=== PATIENT | male | born 1995 | race Caucasian/White ===

== ENCOUNTER 2019-12-20 18:43 | Emergency (ER) | payer SELFPAY ==
[2019-12-20 18:44] VITALS: BP 125/69; PULSE 78; RESP 18; TEMP 36.4; O2SAT 99; BMI 20.7
--- NOTE | 2019-12-20 18:46 | W.ED.UPPEXIN ---
HPI - Extremity Injury (Upper) General: Chief Complaint: Wound/Laceration Stated Complaint: finger laceration Time Seen by Provider: 12/20/19 18:46 Source: patient Mode of arrival: ambulatory Limitations: no limitations History of Present Illness: HPI narrative: Patient was using a skill saw at home, and injured his left middle finger. Patient appears well. Patient appears in moderate pain. Patient denies any chronic medical problems. Patient does have allergies to penicillins. Review of Systems General: Reports: 10 or more systems reviewed and unremarkable except in HPI and below Skin/Breast: Reports: other (Laceration distal digit on the middle finger left hand.) PFS ED PFSH: Social History Smoking and tobacco status: current every day smoker Physical Exam Const: COMMON NORMALS: no apparent distress and oriented x3 GENERAL APPEARANCE: cooperative HENMT: COMMON NORMALS: normocephalic, external ears normal, EAC's normal, TM's normal bilaterally and external nose normal HEAD & SCALP: normal to inspection and normocephalic FACE & SINUS: normal facial exam NOSE: external nose normal GENERAL EAR: hearing not grossly impaired EXTERNAL EAR: Yes external ears normal EXTERNAL AUDITORY CANAL: EAC's normal TYMPANIC MEMBRANE: TM's normal bilaterally MOUTH: oral and palatal mucosa normal THROAT: posterior oropharynx normal Eye: COMMON NORMALS: PERRL and EOMs intact bilaterally PUPIL: Yes PERRL Neck/C-Spine: COMMON NORMALS: full ROM and no lymphadenopathy Lymph: LYMPHATIC: no lymphedema noted Chest: COMMONS NORMALS: inspection of chest normal and palpation of chest normal Resp: COMMON NORMALS: normal respiratory effort and clear to auscultation bilaterally AUSCULTATION: clear to auscultation bilaterally Cardio: COMMON NORMALS: regular rate and regular rhythm RATE: regular rate RHYTHM: regular rhythm GI: COMMON NORMALS: normal to inspection, nondistended, normoactive bowel sounds and non-tender : COMMON NORMALS: Yes no CVA tenderness BLADDER/KIDNEY EXAM: Yes no CVA tenderness Back/Pelvis: COMMON NORMALS: no CVA tenderness and thoracic and lumbar spine normal to inspection Extremity: COMMON NORMALS: normal to inspection GENERAL: No edema Neuro: COMMON NORMALS: oriented x3, moves all extremities and no focal motor deficits Psych: COMMON NORMALS: mental status grossly normal and cooperative Skin: COMMON NORMALS: no rashes or lesions noted NARRATIVE SKIN EXAM: Patient has a distal laceration to the middle digit, left hand. Radial aspect of the distal finger is involved with some loss of nail but does not appear to be affecting the nailbed. Patient has normal tendon function. No obvious foreign bodies are noted. No visible bone is noted at this time. Bleeding is controlled. GENERAL SKIN EXAM: no rashes or lesions noted Procedures Laceration Laceration 1: Site: hand Side (If applicable): left Size (cm): 2.5 Description: irregular Local Anesthetic: lidocaine 1% Pre-repair: wound explored and irrigated extensively Skin layer closed with: nylon Size (cm): 4-0 Number of sutures: 7 Technique: simple, interrupted Nerve Block Nerve Block 1: Local Anesthetic: lidocaine 1% Side: left Nerve Blocks: digital (3rd digit left hand) Procedure Successful: Yes Patient Tolerated Procedure: well Complications: none Course Vital Signs: Vital signs: Vital Signs Temperature 97.6 F 12/20/19 18:44 Pulse Rate 78 12/20/19 18:44 Respiratory Rate 18 12/20/19 18:44 Blood Pressure 125/69 12/20/19 18:44 Pulse Oximetry 99 12/20/19 18:44 MDM - Extremity Injury (Upper) MDM Narrative: Medical decision making narrative: Patient comes in today for complaints of injury to the left middle finger. On exam we note a laceration to the distal part of the left finger involving the nail. Patient has normal range of motion of the finger. Distal cap refill is intact. Differential diagnosis includes fracture, laceration, foreign body, need for tetanus. X-ray noted some involvement of the bone at the tuft. Wound was repaired with 7 stitches. Patient tolerated well under a digital block. Wound was then dressed and splinted for protection. Recommended sutures out in 7 to 10 days. Patient was updated on his tetanus and started on antibiotic and medication for pain. Patient reports understanding. Discharge Plan Discharge Patient Disposition: Home, Self-Care Clinical Impression: Laceration Condition: Stable Prescriptions: New hydrocodone-acetaminophen 5-325 mg tablet 1 tab PO Q6H PRN (Reason: pain (scale score 7-10)) Qty: 10 RF: 0 Bactrim DS 800-160 mg tablet 1 tab PO BID 10 Days Qty: 20 RF: 0 Discharge Orders: Discharge Order (Routine); Ordered 12/20/19 Ordered By: Saulo J Barahona Discharge Diet: Usual diet Discharge Activity: Increase activity as tolerated Patient Instructions: Finger Laceration (ED) Activity Restrictions/Additional Instructions: Keep wound clean and dry Activity as tolerated Wear splint for the next week to protect wound Antibiotics as directed Drink plenty of water with medications Follow-up with primary care in one week Sutures out in 7-10 days Return to ER for high fever, worsening symptoms, or new concerns Coding Level of Care Code ED Vending Technician for Stacy Fwrufus Exam Comprehensive
--- NOTE | 2019-12-20 18:53 | XR_ITS ---
WS: [id number] LEFT HAND: 3 VIEW(S) TECHNIQUE: PA, oblique and lateral. HISTORY: laceration, injury COMPARISON: None available. Comminuted but nondisplaced fracture involving the terminal tuft of the third finger. There is adjace nt soft tissue edema and injury. No foreign body. No additional acute injuries. XR/XR hand LT min 3V* [id number] IMPRESSION: Minimally comminuted, nondisplaced fracture terminal tuft third finger with sof t tissue injury.
[2019-12-20] MEDS: sulfamethoxazole-trimeth DS 160-800 mg Tablet 1 TAB PO (19:45)
[2019-12-20] MEDS: HYDROcodone-acetaminophen 7.5-325 mg Tablet 1 TAB PO (19:45)
[2019-12-20] MEDS: tetanus-dipt-pertussis 0.5 mL SDV IM (19:50)
[2019-12-20 21:05] VITALS: BP 122/76; PULSE 60; RESP 14; O2SAT 97
== END 2019-12-20 21:06 | disposition home or self-care (01) ==
LOC: ER 20:31
PROVIDERS: Emergency Provider Nurse Practitioner Family
DX: S61.313A Laceration without foreign body of left middle finger with damage to nail, initial encounter (principal); Z88.0 Allergy status to penicillin; W31.2XXA Contact with powered woodworking and forming machines, initial encounter; Y92.009 Unspecified place in unspecified non-institutional (private) residence as the place of occurrence of the external cause
CPT/HCPCS: 12001; 73130; 90471; 90715; 99281; 99283

== ENCOUNTER 2020-07-18 18:22 | Emergency (ER) | payer SELFPAY ==
[2020-07-18 18:33] VITALS: BP 120/72; PULSE 83; RESP 14; TEMP 37.2; O2SAT 98; BMI 20.7
--- NOTE | 2020-07-18 18:39 | XR_ITS ---
WS: [id number] LEFT SHOULDER: 3 VIEW(S) TECHNIQUE: Internal and external rotation with Y view. HISTORY: injury COMPARISON: 07/04/2017 No fracture or dislocation or soft tissue abnormality. Glenohumeral and AC joints are unremarkable. XR/XR shoulder LT min 2V* [id number] IMPRESSION: Normal LEFT shoulder.
--- NOTE | 2020-07-18 18:47 | ED_ITS ---
HPI - Extremity Problem General: Chief complaint: Extremity Problem,Nontraumatic Stated complaint: left arm/shoulder injurry Time Seen by Provider: 07/18/20 18:39 History of Present Illness: HPI Narrative: Patient complains of left upper chest injury hurts taking a deep breath this was the last week and a half after doing some wrestling with a friend. Pain is continued able to move her arm but hurts in the left upper chest area Complaint: other (Left upper chest pain rib area) Onset (ago): day(s) Pain Consistency: constant Location: left Severity scale (1-10): 5 Quality: aching Radiation: none Relieving factors: immobilization Exacerbating factors: range of motion Associated symptoms: Reports no associated symptoms; Deny chest pain, fever(s) or rash Review of Systems Const: Denies: fever(s), chills or body aches Eyes: Denies: change in vision or blurry vision ENMT: Denies: throat pain or nasal congestion Card: Denies: chest pain or dyspnea on exertion Resp: Denies: dyspnea, productive cough or non-productive cough GI: Denies: abdominal pain, nausea or vomiting : Denies: difficulty urinating Musc: Reports: other (Pain left pec area down into the ribs); Denies: extremity pain Skin/Breast: Denies: rash Neuro: Denies: headache(s) Psych: Denies: anxiety or depression Rony/Lymph: Denies: easy bruising PFSH ED PFSH: Social History Smoking and tobacco status: current every day smoker Physical Exam Const: COMMON NORMALS: no acute distress, average body habitus and patient oriented x3 HENMT: COMMON NORMALS: normocephalic HEAD & SCALP: normal to inspection and normocephalic FACE & SINUS: normal facial exam Eye: COMMON NORMALS: conjunctivae normal GENERAL EYE: appearance normal, both eyes and all related structures CONJUNCTIVA: Yes conjunctivae normal Neck/C-Spine: COMMON NORMALS: no JVD Chest: CHEST: Yes localized rib tenderness with anteroposterior compression (Left upper chest area) Resp: COMMON NORMALS: normal respiratory effort and clear to auscultation bilaterally AUSCULTATION: clear to auscultation bilaterally Cardio: COMMON NORMALS: no JVD, regular rate and regular rhythm RATE: regular rate RHYTHM: regular rhythm GI: COMMON NORMALS: Normal to inspection, nondistended, normoactive bowel sounds present Extremity: COMMON NORMALS: normal to inspection and full ROM Neuro: COMMON NORMALS: patient oriented x3 Course Vital Signs: Vital signs: Vital Signs Temperature 98.9 F 07/18/20 18:33 Pulse Rate 83 07/18/20 18:33 Respiratory Rate 14 07/18/20 18:33 Blood Pressure 120/72 07/18/20 18:33 Pulse Oximetry 98 07/18/20 18:33 MDM - Extremity (Nontraumatic) Imaging Data^: Other Xray: My impression: Negative Discharge Plan Discharge Patient Disposition: Home Clinical Impression: Pectoralis muscle strain Qualifiers: Encounter type: initial encounter Qualified Code(s): S29.011A - Strain of muscle and tendon of front wall of thorax, initial encounter Condition: Stable Prescriptions: No Action hydrocodone-acetaminophen 5-325 mg tablet 1 tab PO Q6H PRN (Reason: pain (scale score 7-10)) Qty: 10 RF: 0 Discharge Orders: Discharge Order (Routine); Ordered 07/18/20 Ordered By: Gilberto Art Discharge Diet: Usual diet Discharge Activity: Increase activity as tolerated Patient Instructions: Muscle Strain (ED) Activity Restrictions/Additional Instructions: Apply ice and moist heat to area alternate. Can take ibuprofen for discomfort. Follow-up your family medical provider if no significant provement in 1 to 2 morales celis Discharge Date/Time: 07/18/20 19:45 Coding Level of Care Code ED Sink Cutter for Stacy Fwd Exam Comprehensive
--- NOTE | 2020-07-18 18:47 | XR_ITS ---
WS: [id number] LEFT RIBS, MULTIPLE VIEWS WITH PA CHEST HISTORY: left upper chest pain COMPARISON: None available. Lungs and mediastinum: Mildly hyperexpanded lungs. No pneumothorax or pulmonary contusion. There are a few scattered granulomata in the RIGHT lung. Ribs: No rib fractures or bone destruction identified. XR/XR ribs LT mn 3V w CXR1V [id number] IMPRESSION: No LEFT rib fractures identified.
== END 2020-07-18 19:45 | disposition home or self-care (01) ==
PROVIDERS: Emergency Provider Nurse Practitioner Family
DX: S29.011A Strain of muscle and tendon of front wall of thorax, initial encounter (principal); F17.210 Nicotine dependence, cigarettes, uncomplicated; X50.9XXA Other and unspecified overexertion or strenuous movements or postures, initial encounter; Y93.72 Activity, wrestling
CPT/HCPCS: 12345; 71101; 73030; 99281; 99283

== ENCOUNTER 2021-08-19 19:46 | Emergency (ER) | payer SELFPAY ==
[2021-08-19 19:52] VITALS: BP 119/74; PULSE 79; RESP 18; TEMP 37.1; O2SAT 99; BMI 20.7
--- NOTE | 2021-08-19 20:18 | W.ED.MALEGU ---
HPI - Male Genitourinary General: Chief complaint: Urogenital-Male Stated complaint: Blood in Urine\Testical Pain\ABD Pain Time Seen by Provider: 08/19/21 20:18 History of Present Illness: HPI Narrative: 26-year-old male patient comes in today with complaints of pain to the right testicle. Patient reports that last 3 days he has had increasing discomfort to the right testicle, it first started with drainage from the penile tip, and changes in urination with noticeable blood. Patient appears well. Patient appears in mild pain. Patient appears well. Patient appears no acute distress. Patient denies any routine medications or chronic medical problems. Patient does report chlamydia about 1 year ago. Review of Systems General: Reports: 10 or more systems reviewed and unremarkable except in HPI and below : Reports: penile discharge and testicular pain PFS ED PFSH: Social History Smoking and tobacco status: current every day smoker Physical Exam Const: COMMON NORMALS: no acute distress and patient oriented x3 GENERAL APPEARANCE: cooperative HENMT: COMMON NORMALS: normocephalic and Normal external nose present HEAD & SCALP: normal to inspection and normocephalic NOSE: Normal external nose present Eye: GENERAL EYE: appearance normal, both eyes and all related structures Neck/C-Spine: COMMON NORMALS: full ROM Chest: COMMONS NORMALS: normal inspection of the chest Resp: COMMON NORMALS: normal respiratory effort EFFORT & INSPECTION: Yes able to speak in complete sentences Cardio: COMMON NORMALS: regular rate and regular rhythm RATE: regular rate RHYTHM: regular rhythm GI: COMMON NORMALS: non-tender : BLADDER/KIDNEY EXAM: Yes CVA tenderness on the right PENIS: normal penis SCROTUM: Yes Cremasteric reflex present TESTES: No testicular swelling and Yes epididymal tenderness Back/Pelvis: COMMON NORMALS: thoracic and lumbar spine normal to inspection GENERAL BACK: Yes CVA tenderness Extremity: COMMON NORMALS: normal to inspection Neuro: COMMON NORMALS: patient oriented x3 and moves all extremities Psych: COMMON NORMALS: mental status grossly normal and cooperative Skin: COMMON NORMALS: no rashes or lesions noted GENERAL SKIN EXAM: no rashes or lesions noted Course Vital Signs: Vital signs: Vital Signs Temperature 98.7 F 08/19/21 21:35 Pulse Rate 77 08/19/21 21:35 Respiratory Rate 18 08/19/21 21:35 Blood Pressure 121/72 08/19/21 21:35 Pulse Oximetry 100 08/19/21 21:35 MDM - Male MDM Narrative: Medical decision making narrative: Patient came in today for complaints of burning with urination, penile discharge, and right testicular pain. On exam patient has normal testicles with tenderness of a varicocele or epididymis. Normal cremasteric reflex. Differential diagnosis includes but not limited to epididymitis, urinary tract infection, kidney stone. Urine had a large amount of red blood cells and white blood cells. Laboratory values noted a 14.5 white count. CMP was unremarkable. Ultrasound of the scrotum noted a varicocele but was otherwise normal. CT of the abdomen and bladder noted no obstructing renal calculi. Reviewed exam with patient recommended treatment for a urinary tract infection. Recommended follow-up with urologist due to the cystitis and the varicocele. Case management was consulted for referral. Patient reported understanding and agreed to plan. Patient was written a prescription for some hydrocodone 5/325 to use as needed for breakthrough pain. Review of the record indicated no recent narcotic prescriptions. Patient reported that he would use it sparingly and understood the risks involved of you taking the medication but states that he often will not take medications like that and will otherwise use his medical marijuana. Lab Data: Labs: Lab Results 08/19/21 08/19/21 08/19/21 19:59 20:42 20:42 WBC 14.5 10^3/uL H 10 ^3/uL (4.0-10.0) RBC 4.87 10^6/uL 10^6 /uL (4.1-5.3) Hgb 14.5 g/dL g/dL (11.7-16.6) Hct 45.0 % % (42.0-52.0) MCV 92.4 fl fl (80-94) MCH 29.8 pg pg (28.0-34.0) MCHC 32.2 g/dL g/dL (30.0-36.0) RDW 12.8 % % (12.1-15.1) Plt Count 235 10^3/cmm 10^3 /cmm (130-400) MPV 10.4 fL fL (7.4-10.4) Neut % (Auto) 79.6 % % Lymph % (Auto) 12.4 % % [place] % (Auto) 6.3 % % Eos % (Auto) 1.1 % % Baso % (Auto) 0.3 % % Neut # (Auto) 11.51 10^3/uL H 1 0^3/uL (1.8-7.7) Lymph # (Auto) 1.8 10^3/uL 10^3/ uL (0.8-4.8) [place] # (Auto) 0.9 10^3/uL 10^3/ uL (0.2-0.9) Eos # (Auto) 0.2 10^3/uL 10^3/ uL (0.0-0.8) Baso # (Auto) 0.0 10^3/uL 10^3/ uL (0.0-0.1) Nucleated RBC % (a uto) 0 % % Nucleated RBCs # 0.0 /100WBC /100W BC Sodium 136 mmol/L mmol/L (136-145) Potassium 3.7 mmol/L mmol/L (3.5-5.1) Chloride 99 mmol/L mmol/L (98-107) Carbon Dioxide 24 mmol/L mmol/L (22-29) Anion Gap 16.7 (5-19) BUN 15 mg/dL mg/dL (6-20) Creatinine 0.8 mg/dL mg/dL (0.7-1.2) GFR Calculation 116.0 mL/min mL/m in (90-130) Glucose 122 mg/dL H mg/dL (65-115) Calculated Osmolal ity 284 mOsm/kg L mOs m/kg (285-295) Calcium 8.5 mg/dL mg/dL (8.5-10.5) Total Bilirubin 0.3 mg/dL mg/dL (0.15-1.2) AST 14 U/L U/L (0-40) ALT 11 U/L U/L (0-41) Alkaline Phosphata se 101 IU/L IU/L (40-130) Total Protein 6.4 g/dL L g/dL (6.6-8.7) Albumin 4.1 g/dL g/dL (3.5-5.2) Globulin 2.3 g/dL g/dL (1.3-4.6) Urine Color Yellow (Yellow) Urine Appearance Sl hazy (CLEAR) Urine pH 8 H (5-7) Ur Specific Gravit y 1.010 (1.005-1.030) Urine Protein Trace (Negative) Urine Glucose (UA) Norm (Normal) Urine Ketones Negative (Negative) Urine Blood 3+ H (Negative) Urine Nitrate Negative (Negative) Urine Bilirubin Neg (Negative) Prot Sulfosalicyli c Acd Positive (Negative) Urine Urobilinogen Norm mg/dL mg/dL (Negative) Ur Leukocyte Kimberly ase 2+ H (Negative) Urine RBC >100 /hpf H /hpf (0-2) Urine WBC Too numerous to c nt /hpf H /hpf (0-5) Ur Squamous Epith Cells 0-4 /hpf H /hpf (0-5) Amorphous Sediment Not Reportable Urine Bacteria 2+ /hpf H /hpf (NONE) Discharge Plan Discharge Patient Disposition: Home Clinical Impression: Cystitis, Right varicocele Condition: Stable Prescriptions: New Cipro 500 mg tablet 500 mg PO BID Qty: 20 RF: 0 hydrocodone-acetaminophen 5-325 mg tablet 1 tab PO TID PRN (Reason: pain (scale score 7-10)) Qty: 7 RF: 0 No Action hydrocodone-acetaminophen 5-325 mg tablet 1 tab PO Q6H PRN (Reason: pain (scale score 7-10)) Qty: 10 RF: 0 Discharge Orders: Discharge ED (Routine); Ordered 08/19/21 Ordered By: Saulo Barahona Discharge Diet: Usual diet Discharge Activity: Increase activity as tolerated Patient Instructions: Varicocele (ED), Opioid Safety Activity Restrictions/Additional Instructions: Home and rest. Drink plenty of water. Take antibiotic as directed for the full 10 days. Use medication Tylenol and ibuprofen as needed for mild to moderate pain. Use hydrocodone for severe pain. Activity as tolerated. Use good supportive undergarments for the groin. Follow-up with urologist for further evaluation and treatment of varicocele. Coding Level of Care Code ED Electronics Lead for Chg Fwd Exam Comprehensive
[2021-08-19 20:25] LABS: Blood Urine 3+ (Negative); Glucose Urine UA Norm (Normal); Ketones Urine Negative (Negative); Nitrate Urine Negative (Negative); Protein Urine Trace (Negative); Urine Appearance SL Hazy (CLEAR); Urine Color Yellow (Yellow); pH Urine 8 (5-7)
--- NOTE | 2021-08-19 20:25 | USR_ITS ---
PROCEDURE INFORMATION: Exam: US Scrotum Exam date and time: 08/19/2021 8:25 PM Age: 26 years old Clinical indication: Scrotum pain; Additional info: Right test pain, R/O torsion TECHNIQUE: Imaging protocol: Real-time ultrasound of the scrotum and contents with color Doppler and image documentation. Total images: 55 COMPARISON: CT kidney stone [id number] 08/19/2021 8:42 PM FINDINGS: Right testicle: Normal. No mass. No torsion. Normal vascular flow. Dimensions of the right testicle 4.8 cm x 2.3 cm x 2.5 cm. Left testicle: Normal. No mass. No torsion. Normal vascular flow. Dimensions of the left testicle 4.2 cm x 2.6 cm x 3.1 cm. Epididymides: Normal. Scrotum: Bilateral small varicoceles, right larger than left. No visible hydrocele. US/US scrotum [id number] IMPRESSION: Bilateral small varicoceles. Radiation Dose CTDIVOL = (mGy): DLP = (mGy-cm)
--- NOTE | 2021-08-19 20:25 | CTR_ITS ---
PROCEDURE INFORMATION: Exam: CT Abdomen And Pelvis Without Contrast Exam date and time: 08/19/2021 8:25 PM Age: 26 years old Clinical indication: Abdominal pain; Localized; Right lower quadrant (rlq); Patient HX: Rlq/groin pain; Additional info: Right CVA tenderness, right testicular pain TECHNIQUE: Imaging protocol: Computed tomography of the abdomen and pelvis without contrast. Total images: 327 Radiation optimization: All CT scans at this facility use at least one of these dose optimization techniques: automated exposure control; mA and/or kV adjustment per patient size (includes targeted exams where dose is matched to clinical indication); or iterative reconstruction. COMPARISON: CR XR ribs LT mn 3V w CXR1V [id number] 07/18/2020 7:01 PM RADIATION DOSE METRICS: Total DLP (mGy-cm): 902.62 FINDINGS: Lungs: Limited assessment of the lung bases fails to reveal evidence for active cardiopulmonary process. Liver: No visible hepatic mass or cystic structure. Gallbladder and bile ducts: Gallbladder is contracted. No visible cholelithiasis. No visible intra or extrahepatic biliary ectasia. Pancreas: Pancreas is unremarkable. No visible pancreatic ductal ectasia. Spleen: Spleen is unremarkable. Adrenal glands: Adrenal glands unremarkable. Kidneys and ureters: No visible hydronephrosis, hydroureter, ureterolithiasis, nephrolithiasis, or nephrocalcinosis. No visible perinephric fluid. Stomach and bowel: Assessment of the hollow viscus fails to reveal evidence of active or acute pathology. Nonobstructed bowel pattern. No visible acute diverticulitis. No visible adynamic or reactive ileus. Appendix: The appendix is visualized and appears noninflamed. Intraperitoneal space: No visible pneumoperitoneum or intraperitoneal ascites. Vasculature: The abdominal aorta is nonaneurysmal. Phleboliths in the true pelvis. Lymph nodes: No current visible evidence of active mesenteric or retroperitoneal lymphadenopathy. No visible evidence of mesenteric lymphadenitis or active mesenteritis/panniculitis. Urinary bladder: Urinary bladder unremarkable. No visible bladder stone. Reproductive: Unremarkable as visualized for age. Bones/joints: No visible active or acute osseous pathology. Mild scoliotic curvature of the spine. Soft tissues: Unremarkable. CT/CT kidney stone [id number] IMPRESSION: 1. Currently no visible evidence for acute abdominal or pelvic pathologic process. 2. No visible hydronephrosis, hydroureter, ureterolithiasis, nephrolithiasis, or nephrocalcinosis. Radiation Dose CTDIVOL = (mGy): DLP = 902.62 (mGy-cm)
[2021-08-19 20:26] LABS: Add Urine Microscopic? YES; Bilirubin Urine Neg (Negative); Leukocyte Esterase Urine 2+ (Negative); Sulfosalicylic Acid Urine Positive (Negative); Urobilinogen Urine Norm (Negative)
[2021-08-19 20:28] LABS: Add Urine Culture? Yes; Bacteria Urine 2+ /hpf; RBC Urine >100 /hpf (0-2); Squamous Epithelial Cell Urine 0-4 /hpf (0-5); WBC Urine TOO NUMEROUS TO CNT /hpf (0-5)
[2021-08-19] MEDS: HYDROcodone-acetaminophen 7.5-325 mg Tablet 1 TAB PO (20:35)
[2021-08-19 20:46] LABS: Basophils % 0.3 %; Eosinophils # 0.2 10^3/uL (0.0-0.8); Eosinophils % 1.1 %; Hemoglobin 14.5 g/dL (11.7-16.6); Lymphocytes # 1.8 10^3/uL (0.8-4.8); Lymphocytes % 12.4 %; Mean Corpuscular HGB Conc 32.2 g/dL (30.0-36.0); Mean Corpuscular Hemoglobin 29.8 pg (28.0-34.0); Mean Corpuscular Volume 92.4 fl (80-94); Mean Platelet Volume 10.4 fL (7.4-10.4); Monocytes # 0.9 10^3/uL (0.2-0.9); Monocytes % 6.3 %; Neutrophils # 11.51 10^3/uL (1.8-7.7); Neutrophils % 79.6 %; Nucleated Red Blood Cells % 0 %; Platelet Count 235 10^3/cmm (130-400); Red Blood Count 4.87 10^6/uL (4.1-5.3); Red Cell Distribution Width 12.8 % (12.1-15.1); White Blood Count 14.5 10^3/uL (4.0-10.0)
[2021-08-19 21:01] LABS: Blood Urea Nitrogen 15 mg/dL (6-20); Calcium 8.5 mg/dL (8.5-10.5); Chloride 99 mmol/L (98-107); Potassium 3.7 mmol/L (3.5-5.1); Sodium 136 mmol/L (136-145); Total Bilirubin 0.3 mg/dL (0.15-1.2)
[2021-08-19 21:17] LABS: Alanine Aminotransferase 11 U/L (0-41); Albumin Level 4.1 g/dL (3.5-5.2); Alkaline Phosphatase 101 IU/L (40-130); Anion Gap 16.7 (5-19); Aspartate Amino Transferase 14 U/L (0-40); Carbon Dioxide 24 mmol/L (22-29); Globulin 2.3 g/dL (1.3-4.6); Glucose 122 mg/dL (65-115); Osmolality Calculated 284 mOsm/kg (285-295); Total Protein 6.4 g/dL (6.6-8.7)
[2021-08-19 21:35] VITALS: BP 121/72; PULSE 77; RESP 18; TEMP 37.1; O2SAT 100
[2021-08-19] MEDS: ciprofloxacin 500 mg Tablet PO (21:38)
--- NOTE | 2021-08-21 05:37 | DCPLANNER ---
manager regional had message to schedule a follow up appointment for patient with Dr. Zamudio. manager regional emailed patients information to Selvin Ren[place] and Julie in Dr. Starkey office. Patients information will be printed and reviewed. Clinic will call patient with appointment information.
--- NOTE | 2021-08-22 08:18 | DCPLANNER ---
Patient has a follow up appointment scheduled for Sunday, September 19, [address] at 9:[address] Zamudio. Clinic will call patient with appointment information.
== END 2021-08-19 21:42 | disposition home or self-care (01) ==
PROVIDERS: Emergency Provider Nurse Practitioner Family
DX: I86.1 Scrotal varices (principal); N30.90 Cystitis, unspecified without hematuria; F17.210 Nicotine dependence, cigarettes, uncomplicated
CPT/HCPCS: 74176; 76870; 80053; 81001; 85025; 87077; 87086; 87186; 87491; 87591; 93976; 99283

== ENCOUNTER 2023-05-27 06:37 | Emergency (ER) | payer SELFPAY ==
[2023-05-27 06:44] VITALS: BP 149/87; PULSE 71; RESP 16; TEMP 36.7; O2SAT 98; BMI 21.2
[2023-05-27 06:47] VITALS: PULSE 64; O2SAT 97
[2023-05-27] MEDS: ketorolac 30 mg/mL INJ IVP (07:23)
[2023-05-27] MEDS: orphenadrine 30 mg/mL Inj 2 mL 60 MG IVP (07:24)
[2023-05-27] MEDS: dexamethasone 10 mg/mL INJ IVP (07:24)
--- NOTE | 2023-05-27 07:26 | ED_ITS ---
HPI - Back Pain/Injury General: Chief Complaint: Back Pain/Injury Stated Complaint: back pain Time Seen by Provider: 05/27/23 06:42 Source: patient Mode of arrival: ambulatory History of Present Illness: 28-year-old male presents emergency room with complaints of back pain. He has had back pain intermittently in the past he is few weeks ago he was on steroids and muscle relaxers which did seem to improve. However this recurred again he cannot recall a precipitating event. No recent trauma twisting or injury. No difficulty with urinary retention or fecal incontinence no saddle paresthesias. MD elicited complaint: back pain Pertinent past history: prior back pain Onset (ago): day(s) Timing: constant Severity: moderate Similar Symptoms Previously: Yes Location: lumbar spine Radiation: none Exacerbating factors: movement, sitting upright and walking Relieving factors: supine Associated symptoms: Reports difficulty walking and fatigue; Deny abdominal pain, arthralgias, chills, dysuria, fever(s), hematuria, myalgias, nausea, numbness, syncope, tingling/numbness/burning, urinary frequency, urinary urgency, vomiting or weakness Review of Systems Const: Reports: fatigue; Denies: fever(s) or chills Card: Denies: chest pain or syncope Resp: Denies: dyspnea, productive cough or non-productive cough GI: Denies: abdominal pain, nausea or vomiting : Denies: dysuria, urinary frequency, urinary urgency or hematuria Musc: Reports: back pain Skin/Breast: Denies: rash or pruritus Neuro: Reports: difficulty walking [facility] ED PFSH: Social History Smoking and tobacco status: current every day smoker Physical Exam Const: GENERAL APPEARANCE: cooperative and comfortable ORIENTATION/CONSCIOUSNESS: Yes awake, Yes oriented to person, Yes oriented to place and Yes oriented to time HENMT: COMMON NORMALS: normocephalic, atraumatic and hearing grossly normal bilaterally HEAD & SCALP: normocephalic and atraumatic Resp: COMMON NORMALS: normal respiratory effort, No retractions, No use of accessory muscles and clear to auscultation bilaterally AUSCULTATION: clear to auscultation bilaterally Cardio: COMMON NORMALS: regular rate, regular rhythm and No murmurs present (Cardio) RATE: regular rate RHYTHM: regular rhythm GI: COMMON NORMALS: Soft to palpation and No hepatosplenomegaly present AUSCULTATION: Yes normoactive bowel sounds PALPATION: Yes Soft to palpation, No Tenderness to palpation present (GI), No Guarding due to palpation present (GI) and Yes No hepatosplenomegaly present Extremity: COMMON NORMALS: normal to inspection, capillary refill normal, no clubbing, cyanosis or edema, no calf tenderness and no pedal edema Neuro: SENSORIUM/ORIENTATION: Yes oriented to person, Yes oriented to place and Yes oriented to time Skin: COMMON NORMALS: no rashes or lesions noted GENERAL SKIN EXAM: no rashes or lesions noted Course Vital Signs: Vital signs: Vital Signs Temperature 98.0 F 05/27/23 06:44 Pulse Rate 64 05/27/23 06:47 Respiratory Rate 16 05/27/23 06:44 Blood Pressure 149/87 05/27/23 06:44 Pulse Oximetry 97 05/27/23 06:47 Oxygen Delivery Me thod Room Air 05/27/23 06:44 MDM - Back Pain/Injury Medical Decision Making Improvement in medications given. No red flag symptoms at this time. This been a recurring issue for him in the past. Discharged home on steroid taper diclofenac and tizanidine. We will have case management help him make arrangements for follow-up with PCP. Discharge Plan Discharge Patient Disposition: Home Clinical Impression: Strain of lumbar region Condition: Stable Prescriptions: New tizanidine 4 mg tablet 4 mg PO Q6H PRN (Reason: muscle spasticity) Qty: 20 0RF Rx Instructions: do not exceed 3 doses per 24 hrs prednisone 20 mg tablet 20 mg PO TID Qty: 15 0RF Rx Instructions: 1 p.o. 3 times daily x3 days, 1 p.o. twice daily x2 days, 1 p.o. daily x2 days diclofenac sodium 75 mg tablet,delayed release (DR/EC) 75 mg PO Q12H PRN (Reason: pain) Qty: 20 0RF Discontinued ibuprofen 800 mg tablet 800 mg PO Q8H PRN (Reason: pain) Qty: 60 0RF Discharge Orders: Discharge ED (Routine); Ordered 05/27/23 Ordered By: Axel Billings Discharge Diet: Usual diet Discharge Activity: Increase activity as tolerated Patient Instructions: Opioid Safety, Pain Management Activity Restrictions/Additional Instructions: You were seen today for recurrent low back pain. Recommend that you establish with a primary care provider for long-term management and further evaluation if indicated. Case management will help make arrangements for establish with a primary care physician. Coding Level of Care Code ED Computer Forensic Specialist for Stacy Kern
--- NOTE | 2023-05-27 07:27 | PC.PHAR ---
pt states only takes ibuprofen prn-pt states he finished his methocarbamol 750mg tid prn and prednisone 60mg daily written on 04/16/23
--- NOTE | 2023-05-27 10:35 | DCPLANNER ---
program development manager had message to speak with patient about getting established with a primary care physician. Patient stated that he wanted to speak with his , before getting a physician.
== END 2023-05-27 08:24 | disposition home or self-care (01) ==
PROVIDERS: Emergency Provider Family Medicine
DX: S39.012A Strain of muscle, fascia and tendon of lower back, initial encounter (principal); F17.210 Nicotine dependence, cigarettes, uncomplicated; X58.XXXA Exposure to other specified factors, initial encounter
CPT/HCPCS: 96374; 96375; 99284; J1100; J1885; J2360

== ENCOUNTER 2023-09-10 16:16 | Inpatient (IN) | payer MEDICAID, SELFPAY ==
[2023-09-10 16:22] VITALS: BMI 20.7
[2023-09-10 16:26] VITALS: BP 128/80; PULSE 97; RESP 16; TEMP 36.8; O2SAT 98
--- NOTE | 2023-09-10 16:27 | W.ED.PSYCHS ---
HPI - Psych General: Chief Complaint: Psychiatric Symptoms Stated Complaint: SI/ Depression Time Seen by Provider: 09/10/23 16:17 Source: patient, EMS and police Limitations: no limitations History of Present Illness: 28-year-old male states that his inserted her divorce papers he had sent her text and easy to kill himself she had called the police please pull them over he states that he no longer wants to live anymore to them and they brought him up here feeling out affidavits. When I evaluate patient he is very quiet seems depressed he is not answering my questions and is very avoidant at this time. Associated symptoms: Reports depression and suicidal ideation Review of Systems Const: Denies: fever(s), chills, body aches or change in appetite ENMT: Denies: throat pain or dental pain Card: Denies: chest pain Resp: Denies: dyspnea GI: Denies: abdominal pain, nausea, vomiting or diarrhea Musc: Denies: neck pain or back pain Skin/Breast: Denies: rash Neuro: Denies: headache(s) Psych: Reports: depression and suicidal ideation [facility] ED PFSH: Social History Smoking and tobacco/nicotine status: current every day tobacco/nicotine user Physical Exam Const: COMMON NORMALS: no acute distress, patient oriented x3 and healthy appearing HENMT: COMMON NORMALS: normocephalic and atraumatic HEAD & SCALP: normocephalic and atraumatic Eye: COMMON NORMALS: conjunctivae normal CONJUNCTIVA: Yes conjunctivae normal Neck/C-Spine: COMMON NORMALS: full ROM and supple Chest: COMMONS NORMALS: normal inspection of the chest Resp: COMMON NORMALS: normal respiratory effort Cardio: COMMON NORMALS: regular rate, regular rhythm and No murmurs present (Cardio) RATE: regular rate RHYTHM: regular rhythm Extremity: COMMON NORMALS: normal to inspection Neuro: COMMON NORMALS: patient oriented x3, moves all extremities and no focal motor deficits Psych: COMMON NORMALS: mental status grossly normal, Normal thought process present and cooperative MOOD & AFFECT: Yes depressed mood THOUGHT PROCESS: Normal thought process present THOUGHT CONTENT: Yes Suicidality present Skin: COMMON NORMALS: no rashes or lesions noted and no wounds GENERAL SKIN EXAM: no rashes or lesions noted Course Vital Signs: Vital signs: Vital Signs Temperature 98.2 F 09/10/23 16:26 Pulse Rate 97 09/10/23 16:26 Respiratory Rate 15 09/10/23 18:00 Blood Pressure 128/80 09/10/23 16:26 Pulse Oximetry 98 09/10/23 16:26 Oxygen Delivery Me thod Room Air 09/10/23 16:26 [facility] - Psych Medical Decision Making Patient presents here with suicidal ideation he is placed under 96-hour hold he is medically cleared will admit him to the psych [facility]. Medical Records I reviewed the patient's medical records. Lab Data I reviewed the patient's lab results. 09/10/23 16:43 09/10/23 16:43 Laboratory Results WBC 10.40 10^3/uL (3.29-11.43) 09/10/23 16:43 RBC 5.39 10^6/uL (3.85-5.65) 09/10/23 16:43 Hgb 16.00 g/dL (11.27-16.99) 09/10/23 16:43 Hct 49.9 % (37-53) 09/10/23 16:43 MCV 92.6 fl (82-101) 09/10/23 16:43 MCH 29.7 pg (27-33) 09/10/23 16:43 MCHC 32.1 g/dL (30-55) 09/10/23 16:43 RDW 12.9 % (12.1-15.1) 09/10/23 16:43 Plt Count 271 10^3/cmm (157-399) 09/10/23 16:43 MPV 9.9 fL (7.4-10.4) 09/10/23 16:43 Neut % (Auto) 80.3 % 09/10/23 16:43 Lymph % (Auto) 13.6 % 09/10/23 16:43 [place] % (Auto) 4.9 % 09/10/23 16:43 Eos % (Auto) 0.3 % 09/10/23 16:43 Baso % (Auto) 0.5 % 09/10/23 16:43 Neut # (Auto) 8.36 10^3/uL (1.8-7.7) H 09/10/23 16:43 Lymph # (Auto) 1.4 10^3/uL (0.8-4.8) 09/10/23 16:43 [place] # (Auto) 0.5 10^3/uL (0.2-0.9) 09/10/23 16:43 Eos # (Auto) 0.0 10^3/uL (0.0-0.8) 09/10/23 16:43 Baso # (Auto) 0.1 10^3/uL (0.0-0.1) 09/10/23 16:43 Nucleated RBC % (auto) 0 % 09/10/23 16:43 Nucleated RBCs # 0.0 /100WBC 09/10/23 16:43 Sodium 140 mmol/L (136-145) 09/10/23 16:43 Potassium 4.7 mmol/L (3.5-5.1) 09/10/23 16:43 Chloride 102 mmol/L (98-107) 09/10/23 16:43 Carbon Dioxide 27 mmol/L (22-29) 09/10/23 16:43 Anion Gap 15.7 (5-19) 09/10/23 16:43 BUN 15 mg/dL (6-20) 09/10/23 16:43 Creatinine 0.9 mg/dL (0.7-1.2) 09/10/23 16:43 GFR Calculation 99.8 mL/min (90-130) 09/10/23 16:43 Glucose 115 mg/dL (65-115) 09/10/23 16:43 Calculated Osmolality 292 mOsm/kg (285-295) 09/10/23 16:43 Calcium 9.7 mg/dL (8.5-10.5) 09/10/23 16:43 Total Bilirubin 0.4 mg/dL (0.15-1.2) 09/10/23 16:43 AST 20 U/L (0-40) 09/10/23 16:43 ALT 23 U/L (0-41) 09/10/23 16:43 Alkaline Phosphatase 95 U/L (40-130) 09/10/23 16:43 Total Protein 7.5 g/dL (6.6-8.7) 09/10/23 16:43 Albumin 4.8 g/dL (3.5-5.2) 09/10/23 16:43 Globulin 2.7 g/dL (1.3-4.6) 09/10/23 16:43 Salicylates < 0.3 mg/dL (3-10) L 09/10/23 16:43 Acetaminophen < 5.0 ug/mL (10-30) L 09/10/23 16:43 Ethyl Alcohol < 10 mg/dL (0-10) 09/10/23 16:43 No radiology studies performed this visit Discharge Plan Discharge Patient Disposition: Admitted As Inpatient Admit Provider: Dave Dobbins Clinical Impression: Suicidal ideation Condition: Stable Coding Level of Care Code ED Investment Underwriter for Stacy Kern
[2023-09-10 16:45] VITALS: RESP 15
[2023-09-10 17:01] LABS: Basophils # 0.1 10^3/uL (0.0-0.1); Basophils % 0.5 %; Eosinophils % 0.3 %; Hematocrit 49.9 % (37-53); Lymphocytes # 1.4 10^3/uL (0.8-4.8); Lymphocytes % 13.6 %; Mean Corpuscular HGB Conc 32.1 g/dL (30-55); Mean Corpuscular Hemoglobin 29.7 pg (27-33); Mean Corpuscular Volume 92.6 fl (82-101); Mean Platelet Volume 9.9 fL (7.4-10.4); Monocytes # 0.5 10^3/uL (0.2-0.9); Monocytes % 4.9 %; Neutrophils # 8.36 10^3/uL (1.8-7.7); Neutrophils % 80.3 %; Nucleated Red Blood Cells % 0 %; Platelet Count 271 10^3/cmm (157-399); Red Blood Count 5.39 10^6/uL (3.85-5.65); Red Cell Distribution Width 12.9 % (12.1-15.1)
--- NOTE | 2023-09-10 17:03 | PC.NURSE ---
this nurse informed pt on protocol of psychiatric hold. pt aware and verbalized understanding of process. pt calm and cooperative.
[2023-09-10 17:20] LABS: Acetaminophen < 5.0 ug/mL (10-30); Alanine Aminotransferase 23 U/L (0-41); Albumin Level 4.8 g/dL (3.5-5.2); Alcohol Level < 10 mg/dL (0-10); Alkaline Phosphatase 95 U/L (40-130); Anion Gap 15.7 (5-19); Aspartate Amino Transferase 20 U/L (0-40); Blood Urea Nitrogen 15 mg/dL (6-20); Calcium 9.7 mg/dL (8.5-10.5); Carbon Dioxide 27 mmol/L (22-29); Chloride 102 mmol/L (98-107); Globulin 2.7 g/dL (1.3-4.6); Glomerular Filtration Rate 99.8 mL/min (90-130); Glucose 115 mg/dL (65-115); Osmolality Calculated 292 mOsm/kg (285-295); Potassium 4.7 mmol/L (3.5-5.1); Salicylate < 0.3 mg/dL (3-10); Sodium 140 mmol/L (136-145); Total Bilirubin 0.4 mg/dL (0.15-1.2); Total Protein 7.5 g/dL (6.6-8.7)
[2023-09-10 18:00] VITALS: RESP 15
--- NOTE | 2023-09-10 18:03 | PC.NURSE ---
this nurse spoke with pt about giving and brother information regarding visit. pt said it was okay to give them information. this nurse updated and brother and informed them pt would be here for tonight, but unsure of length of stay at this time.
--- NOTE | 2023-09-10 18:29 | PC.NURSE ---
report called to Danny in [facility]. per Danny [facility] cannot accept pts until approx [phone].
--- NOTE | 2023-09-10 18:54 | PC.NURSE ---
Report taken from Marjorie Samayoa RN.
[2023-09-10 19:33] VITALS: BP 126/91; PULSE 74; RESP 18; TEMP 36.3; O2SAT 97
[2023-09-10 19:33] LABS: Amphetamines Screen Urine Negative (Negative); Barbiturates Screen Urine Negative (Negative); Benzodiazepines Screen Urine Negative (Negative); Cocaine Screen Urine Negative (Negative); Opiate Screen Urine Negative (Negative); PCP Screen Urine Negative (Negative); THC Screen Urine Positive (Negative)
--- NOTE | 2023-09-10 21:01 | PC.ADMIT ---
[address] [facility] Admission Note: The patient,Mark Quiñones,28 y/o, was given written information regarding hospital policies, unit procedures and contact persons. Patient's smoking status: current every day smoker.PACK A DAY AND VAPES. Vital Signs - 8 hr 09/10/23 16:26 09/10/23 16:45 09/10/23 18:00 Temperature 98.2 F Pulse Rate 97 Respiratory Rate 16 15 15 Blood Pressure 128/80 Pulse Oximetry 98 Oxygen Delivery Method Room Air 09/10/23 19:33 09/10/23 20:50 Temperature 97.4 F L Pulse Rate 74 Respiratory Rate 18 Blood Pressure 126/91 Pulse Oximetry 97 Oxygen Delivery Method Room Air Room Air ADMITTED FROM [facility] VIA WHEELCHAIR AND FREIGHT BROKER AGENT AT SIDE AT 1931. PT WAS PLACED ON A 96 HOUR HOLD THAT ENDS 09/16/23 AT 1648. PT IS EVASIVE, NO EYE CONTACT. PT IS OBSERVED TO HAVE A FLAT AFFECT AND GUARDED. PT STATES HE IS HERE DUE TO THE POLICE BRINGING ME HERE, RN ASKED IF HE MADE SUICIDAL STATEMENTS AND PT ROLLED EYES AND SAID YA PT CURRENTLY DENIES SI/HI AND AVH AT THIS TIME. DENIES PAIN. REPORTS LAST BM ON 09/09/23. REPORTS ALLERGIES OF PCN AND AUGMENTIN. STATES HE TAKES NO MEDICATIONS ON A ROUTINE BASIS. STATES HE HAS NOT BEEN TO A PSYCH FACILITY SINCE HE WAS A KID, WHEN HE STAYED AT [facility] FOR 15 MONTHS. PT REPORTS HE HAS NO SUPPORT SYSTEMS BUT HAS BEEN ON THE PHONE TWICE FOR EXTENDED LENGTH OF TIME. PT ORIENTATED TO UNIT. RATES ANXIETY AND DEPRESSION 0/10. ALL QUESTIONS ANSWERED AND SUPPORT VOICED.
[2023-09-11 06:00] VITALS: RESP 16
[2023-09-11 14:00] VITALS: BP 110/73; PULSE 78; RESP 13; TEMP 36.4; O2SAT 97
--- NOTE | 2023-09-11 14:59 | W.PM.NPUH&PS ---
Providers/Chief Complaint Admitting Physician: Dave Dobbins MD Chief Complaint: SI/ Depression HPI [facility] History of Present Illness Mark Quiñones is a 28 year old male with 1 previous history of inpatient psychiatric hospitalization who presented to the emergency department via police after the patient had allegedly made a statement that he no longer wished to be alive. The patient had reported that he had had an argument with his and she had brought up the idea of divorce and the patient had stated that he responded by stating that she would not need to worry about presenting papers to him as he would no longer be alive. Patient reports that he has battled depression for several years without a trigger. He reports multiple previous episodes of depression 2. He reports his current depression includes feelings of hopelessness, and he Michelle, depression more days than not, some loss of appetite with some worsening in mood later in the day and in the winter months. He endorsed that he has been battling depression for many years and states that he had frequently lashed out in anger but states that he often feels more sad and often reports struggles with concentration when depressed. He states having been treated previously for ADHD during his childhood and adolescent and reports that he has not been on medications for treating depression in more than 10 years. He endorses difficulties with staying on task. He reports difficulties with sustaining attention particularly in things that require sustained effort. He reports that he frequently starts projects and is unable to complete them. He reports that he frequently feels as if he is bored and struggles with sitting still. He reports having struggles with relaxing. He reports that he has also had periods of time where his mood is very different and during those times he has elevated energy decreased, decreased need for sleep, increased spending, and racing thoughts that last 2 to 3 days but are decidedly different than when he is depressed. He had reported having previously been treated with lithium for bipolar disorder during his childhood and adolescence as well. He denies any drug or alcohol use other than routine marijuana use recreationally for several years. He reports recent stressors have contributed to his cycling and mood including having young children and currently struggling with maintaining employment. He denies any history of psychosis. He reports a history of oppositional defiant behavior during childhood and adolescence. Inpatient psychiatric history:: He reports having been hospitalized 1 time at [facility] [place] at the age of 13 and states that he had been in the hospital for literally 13 months and had been diagnosed with bipolar disorder and placed on lithium. He reports no prior history of suicide attempts. Outpatient psychiatric history: none in several years but reports treatment for ADHD in childhood and adolescent with medication trials including lithium, concerta, Drug and alcohol history: He reports no alcohol use. He reports active use of marijuana since early adolescence. He reports no history of drug and alcohol treatment. Medical history: None; current medications: none Surgical history: None reported Allergies: Penicillin, amoxicillin Legal history: Reported some history of legal problems and 17 for breaking and entering along with trespassing. Family psychiatric history: Mother had been diagnosed with depression and schizophrenia Social History: Patient reported some learning problems having been diagnosed with ADHD as a child. He had reported that he had dropped out of high school in the 11th grade. Patient states that he was raised by his biological father as his mother had been diagnosed with paranoid schizophrenia and after his parents split up he and his 20 half siblings lived with the father. He had reported no previous history of sexual physical or emotional abuse. He had reported briefly for a period time in late adolescence that he went to go back to live with his biological mother to help her. 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 He reports that he has been for 6 years and has a 5-year-old and a 9-month-old who lives in the house with him and his . Meds NPU Home Medications Medication Instructions Recorded Confirmed Last Taken Type No Known Home Medications 09/10/23 09/10/23 Unknown History Allergies Allergy/AdvReac Type Severity Reaction Status Date / Time amoxicillin [From Augmentin] Allergy Unknown Verified 05/27/23 07:27 clavulanic acid Allergy Unknown Verified 05/27/23 07:27 [From Augmentin] Penicillins Allergy Unknown Verified 05/27/23 07:27 PFS NPU PFSH: Social History Smoking and tobacco/nicotine status: current every day tobacco/nicotine user Mental Status Exam MSE Comments: He is a pleasant casually dressed white male with fair hygiene and normal gait with no evidence of any abnormal involuntary motor movements tics or tremors appreciated. He was a good historian. There was evidence of moderate to severe psychomotor retardation. His thought process was linear logical goal-directed. His thought content showed no evidence of homicidal ideation. He endorsed vague suicidal ideation with no active plan at this time. His mood was described as depressed. His affect was restricted in range and mood congruent. His speech was normal in regards to rate rhythm and prosody. He did not appear to be responding to internal stimuli. There was no evidence of delusional thinking. His attention span appeared poor. His insight is poor. His judgment is poor. His impulse control appeared limited. His recent and remote memory appear grossly intact. Vitals/I&O/Wt Last Vital Signs Temp 97.4 F L 09/10/23 19:33 Pulse 74 09/10/23 19:33 Resp 16 09/11/23 06:00 BP 126/91 09/10/23 19:33 Pulse Ox 97 09/10/23 19:33 O2 Del Method Room Air 09/10/23 20:50 Weight last 48 hrs Weight 77.111 kg Data NPU 09/10/23 16:43 09/10/23 16:43 A&P Assessment and plan (1) Suicidal ideation: (2) Bipolar depression: (3) Bipolar II disorder: (4) ADHD, predominantly inattentive type: Plan 28-year-old white male with a history of bipolar 2 disorder with periods of hypomania currently endorsing depressed mood with suicidal ideation. He also appears to have symptoms supportive of a diagnosis of ADHD. 1. Encourage individual, group and milieu therapy. 2. Recommend sober living treatment at the highest level of care to which the patient is willing to commit. 3. Continue q-15 minute checks for safety.? 4.? Start Latuda 20mg at 7PM to target bipolar depression. 5.? Will attempt to gather collateral information. Involuntary Hold Information 96 Hour Hold: 96 Hour Involuntary Admission: Yes 96 Hour Hold Ending Date: 09/16/23 96 Hour Hold Ending Time: 16:48 Attestations NPU Medical Necessity Statement*: Inpatient hospitalization is medically necessary and deemed to be the clinically appropriate intervention this time. Medications will be initiated and titrated upwards as clinically indicated. Patient will be in the hospital for at least 2 midnights. The patient's likely length of stay is 3 to 4 days. Coding Level of Care Code Acute Code for [facility] Diagnoses Suicidal ideation R45.851 Bipolar depression F31.9 Bipolar II disorder F31.81 ADHD, predominantly inattentive type F90.0
[2023-09-11] MEDS: lurasidone 20 mg Tablet PO (18:23)
[2023-09-11 19:54] VITALS: BP 128/88; PULSE 64; RESP 16; TEMP 36.6; O2SAT 98
[2023-09-12 06:00] VITALS: BP 108/71; PULSE 70; RESP 18; O2SAT 97
--- NOTE | 2023-09-12 12:37 | P.NPUPN_ITS ---
Subjective NPU 2 Subjective: The patient is a 28-year-old white male with a history of ADHD and bipolar 2 disorder admitted with suicidal ideation and worsening depression for the past several months. He had reported a past history of rapid cycling mood symptoms. He had reported a history of hypomanic episodes. He reports that he had a visit with his who had expressed some optimism about them being able to reconcile. He had reported feeling more hopeful. He did continue to report low energy. He had continued to report problems with sustaining attention and concentration. He reported having slept better yesterday with the LatMDconnectME. Mental Status Exam 2 MSE Comments: He is a pleasant casually dressed white male with fair hygiene and normal gait with no evidence of any abnormal involuntary motor movements tics or tremors appreciated. He was a good historian. There was evidence of moderate psychomotor retardation. His thought process was linear logical goal-directed. He denied any homicidal ideation or suicidal ideation today. His mood was described as better. His affect remained flat. His speech was normal in regards to rate rhythm and prosody. He did not appear to be responding to internal stimuli. There was no evidence of delusional thinking. His attention span appeared variable. His insight is poor. His judgment is poor. His impulse control appeared limited. His recent and remote memory appear grossly intact. Vitals/I&O/Wt Last Vital Signs Temp 97.9 F 09/11/23 19:54 Pulse 70 09/12/23 06:00 Resp 18 09/12/23 06:00 BP 108/71 09/12/23 06:00 Pulse Ox 97 09/12/23 06:00 O2 Del Method Room Air 09/12/23 06:00 Weight last 48 hrs Weight 77.111 kg Data NPU 09/10/23 16:43 09/10/23 16:43 A&P Assessment and plan (1) Suicidal ideation: (2) Bipolar depression: (3) Bipolar II disorder: (4) ADHD, predominantly inattentive type: Plan 28-year-old white male with a history of bipolar 2 disorder with periods of hypomania currently endorsing depressed mood with suicidal ideation. He also appears to have symptoms supportive of a diagnosis of ADHD. 1. Encourage individual, group and milieu therapy. 2. Recommend sober living treatment at the highest level of care to which the patient is willing to commit. 3. Continue q-15 minute checks for safety.? 4.? Increase Latuda to 40mg at 7pm with food. 5.?Referral for [facility] for outpatient therapy. Involuntary Hold Information 2 96 Hour Hold: 96 Hour Involuntary Admission: Yes 96 Hour Hold Ending Date: 09/16/23 96 Hour Hold Ending Time: 16:48 Attestations NPU 2 Medical Necessity Statement*: Inpatient hospitalization is medically necessary and deemed to be the clinically appropriate intervention this time. Medications will be initiated and titrated upwards as clinically indicated. The patient's likely length of stay is 1-2 days. Coding Level of Care Code Acute Code for [facility] Diagnoses Suicidal ideation R45.851 Bipolar depression F31.9 Bipolar II disorder F31.81 ADHD, predominantly inattentive type F90.0
[2023-09-12 13:48] VITALS: BP 124/72; PULSE 66; RESP 16; TEMP 36.8; O2SAT 97
[2023-09-12] MEDS: lurasidone 20 mg Tablet 40 MG PO (18:12)
[2023-09-12] MEDS: nicotine 4 mg lozenge MUCOUS MEM (19:15)
[2023-09-12 21:10] VITALS: BP 115/75; PULSE 67; RESP 18; TEMP 36.4; O2SAT 96
[2023-09-13 06:00] VITALS: BP 118/82; PULSE 62; RESP 18; O2SAT 98
--- NOTE | 2023-09-13 12:13 | P.NPUPN_ITS ---
Subjective NPU 2 Subjective: Patient presented today reporting that he is doing well with the Latuda. Most of the session was focused on his desire to be at his kids first [place]. We discussed the desire for him to be at [facility] is and making sure that things are actually on track and he is not putting [place] above wellness. His was also very much pushing for him being discharged before [place] with the same thinking. We agreed I would talk to Dr. Magallanes and render a decision tomorrow. Mental Status Exam 2 MSE Comments: This is a slender well-developed white male in hospital scrubs with adequate grooming and eye contact. No abnormal movements several mild psychomotor retardation. Cooperative with exam in mild distress. Speech was normal rate and volume. Mood described as better, affect slightly distressed. Thought process organized. Thought content: Patient denied suicidal or homicidal ideation, there were no delusions reported noted, she denied any auditory or visual hallucinations. Attention and concentration were intact and memory appeared reliable but none were formally tested. He is alert and oriented x 3. Insight and judgment limited impulse control limited. Vitals/I&O/Wt Last Vital Signs Temp 97.5 F L 09/12/23 21:10 Pulse 62 09/13/23 06:00 Resp 18 09/13/23 06:00 BP 118/82 09/13/23 06:00 Pulse Ox 98 09/13/23 06:00 O2 Del Method Room Air 09/12/23 13:48 Data NPU 09/10/23 16:43 09/10/23 16:43 A&P Assessment and plan (1) Suicidal ideation: (2) Bipolar depression: (3) Bipolar II disorder: (4) ADHD, predominantly inattentive type: Plan 28-year-old white male with a history of bipolar 2 disorder with periods of hypomania currently endorsing depressed mood with suicidal ideation. He also appears to have symptoms supportive of a diagnosis of ADHD. 1. Encourage individual, group and milieu therapy. 2. Recommend sober living treatment at the highest level of care to which the patient is willing to commit. 3. Continue q-15 minute checks for safety.? 4.? Increased Latuda to 40mg at 7pm with food. 5.?Referral for [facility] for outpatient therapy. Involuntary Hold Information 2 96 Hour Hold: 96 Hour Involuntary Admission: Yes 96 Hour Hold Ending Date: 09/16/23 96 Hour Hold Ending Time: 16:48 Attestations NPU 2 Medical Necessity Statement*: Inpatient hospitalization is medically necessary and deemed to be the clinically appropriate intervention this time. Medications will be initiated and titrated upwards as clinically indicated. The patient's likely length of stay is 1-2 days. Coding Level of Care Code Acute Code for g Fwd Diagnoses Suicidal ideation R45.851 Bipolar depression F31.9 Bipolar II disorder F31.81 ADHD, predominantly inattentive type F90.0
[2023-09-13 14:00] VITALS: BP 112/74; PULSE 65; RESP 16; TEMP 37; O2SAT 98
[2023-09-13] MEDS: lurasidone 20 mg Tablet 40 MG PO (18:00)
[2023-09-13 19:35] VITALS: BP 120/81; PULSE 64; RESP 16; TEMP 36.7; O2SAT 98
[2023-09-14 06:00] VITALS: BP 95/63; PULSE 75; RESP 16; O2SAT 98
[2023-09-14] MEDS: nicotine 4 mg lozenge MUCOUS MEM (09:26)
--- NOTE | 2023-09-14 11:33 | PC.NURSE ---
THIS NURSE CONTACTED PT CYN WALLACE AND ASKED IF PT HAD ACCESS TO [employer]. PT DENIES ACCESS AND STATES THAT SHE LIVES WITH THE PT AND THAT THE PT IS RARELY ALONE. PHYSICIAN NOTIFIED OF THIS INFORMATION.
--- NOTE | 2023-09-14 12:24 | W.PM.NPUDCS ---
Diagnoses at Discharge Discharge Diagnosis (1) Suicidal ideation: Status: Resolved (2) Bipolar depression: Status: Acute (3) Bipolar II disorder: Status: Acute (4) ADHD, predominantly inattentive type: Status: Acute Reason for Visit Reason for Visit: SI/ Depression Brief History: History of Present Illness Mark Quiñones is a 28 year old male with 1 previous history of inpatient psychiatric hospitalization who presented to the emergency department via police after the patient had allegedly made a statement that he no longer wished to be alive. The patient had reported that he had had an argument with his and she had brought up the idea of divorce and the patient had stated that he responded by stating that she would not need to worry about presenting papers to him as he would no longer be alive. Patient reports that he has battled depression for several years without a trigger. He reports multiple previous episodes of depression 2. He reports his current depression includes feelings of hopelessness, and he Michelle, depression more days than not, some loss of appetite with some worsening in mood later in the day and in the winter months. He endorsed that he has been battling depression for many years and states that he had frequently lashed out in anger but states that he often feels more sad and often reports struggles with concentration when depressed. He states having been treated previously for ADHD during his childhood and adolescent and reports that he has not been on medications for treating depression in more than 10 years. He endorses difficulties with staying on task. He reports difficulties with sustaining attention particularly in things that require sustained effort. He reports that he frequently starts projects and is unable to complete them. He reports that he frequently feels as if he is bored and struggles with sitting still. He reports having struggles with relaxing. He reports that he has also had periods of time where his mood is very different and during those times he has elevated energy decreased, decreased need for sleep, increased spending, and racing thoughts that last 2 to 3 days but are decidedly different than when he is depressed. He had reported having previously been treated with lithium for bipolar disorder during his childhood and adolescence as well. He denies any drug or alcohol use other than routine marijuana use recreationally for several years. He reports recent stressors have contributed to his cycling and mood including having young children and currently struggling with maintaining employment. He denies any history of psychosis. He reports a history of oppositional defiant behavior during childhood and adolescence. Inpatient psychiatric history:: He reports having been hospitalized 1 time at [facility] at the age of 13 and states that he had been in the hospital for literally 13 months and had been diagnosed with bipolar disorder and placed on lithium. He reports no prior history of suicide attempts. Outpatient psychiatric history: none in several years but reports treatment for ADHD in childhood and adolescent with medication trials including lithium, concerta, Drug and alcohol history: He reports no alcohol use. He reports active use of marijuana since early adolescence. He reports no history of drug and alcohol treatment. Medical history: None; current medications: none Surgical history: None reported Allergies: Penicillin, amoxicillin Legal history: Reported some history of legal problems and 17 for breaking and entering along with trespassing. Family psychiatric history: Mother had been diagnosed with depression and schizophrenia Social History: Patient reported some learning problems having been diagnosed with ADHD as a child. He had reported that he had dropped out of high school in the 11th grade. Patient states that he was raised by his biological father as his mother had been diagnosed with paranoid schizophrenia and after his parents split up he and his 20 half siblings lived with the father. He had reported no previous history of sexual physical or emotional abuse. He had reported briefly for a period time in late adolescence that he went to go back to live with his biological mother to help her. 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 He reports that he has been for 6 years and has a 5-year-old and a 9-month-old who lives in the house with him and his . Hospital Course Hospital Course He acclimated to the individual, group and milieu therapies provided. He presented having had a significant breakdown after having conflict with his over her possibly leaving. He was started on Latuda which was increased to 40 mg p.o. q. evening. He had positive response to that medication. He worked with the social work team for her appropriate aftercare appointments. We worked with him and his to evaluate safety for discharge. He had significant improvement and was able to contract for safety outside of the hospital prior to discharge. During the hospitalization, the patient had routine laboratory studies which were within normal limits except for a few outliers.? Additionally, there was a general medical evaluation which was also within normal limits and revealed no new acute processes.? At the time of discharge, he denied psychosis or lethality.? Mood and anxiety were well managed.? The patient endorsed a plan to avoid all drugs of abuse and follow up with the aftercare recommendations of the treatment team.? The patient was evaluated and deemed to be absent credible lethality and had achieved the maximum benefit from an inpatient hospitalization, and so was discharged. Involuntary Hold Information 96 Hour Hold: 96 Hour Involuntary Admission: Yes 96 Hour Hold Ending Date: 09/16/23 96 Hour Hold Ending Time: 16:48 Mental Status Exam MSE Comments: This is a slender well-developed white male in hospital scrubs with adequate grooming and eye contact. No abnormal movements. Cooperative with exam in mild distress. Speech was normal rate and volume. Mood described as better, affect slightly distressed. Thought process organized. Thought content: Patient denied suicidal or homicidal ideation, there were no delusions reported noted, she denied any auditory or visual hallucinations. Attention and concentration were intact and memory appeared reliable but none were formally tested. He is alert and oriented x 3. Insight and judgment limited impulse control limited. Discharge Data Studies Completed and Pending: Laboratory Results WBC 10.40 10^3/uL (3. 29-11.43) 09/10/23 16:43 RBC 5.39 10^6/uL (3.8 5-5.65) 09/10/23 16:43 Hgb 16.00 g/dL (11.27 -16.99) 09/10/23 16:43 Hct 49.9 % (37-53) 09/10/23 16:43 MCV 92.6 fl (82-101) 09/10/23 16:43 MCH 29.7 pg (27-33) 09/10/23 16:43 MCHC 32.1 g/dL (30-55) 09/10/23 16:43 RDW 12.9 % (12.1-15.1 ) 09/10/23 16:43 Plt Count 271 10^3/cmm (157 -399) 09/10/23 16:43 MPV 9.9 fL (7.4-10.4) 09/10/23 16:43 Neut % (Auto) 80.3 % 09/10/23 16:43 Lymph % (Auto) 13.6 % 09/10/23 16:43 [place] % (Auto) 4.9 % 09/10/23 16:43 Eos % (Auto) 0.3 % 09/10/23 16:43 Baso % (Auto) 0.5 % 09/10/23 16:43 Neut # (Auto) 8.36 10^3/uL (1.8 -7.7) H 09/10/23 16:43 Lymph # (Auto) 1.4 10^3/uL (0.8- 4.8) 09/10/23 16:43 [place] # (Auto) 0.5 10^3/uL (0.2- 0.9) 09/10/23 16:43 Eos # (Auto) 0.0 10^3/uL (0.0- 0.8) 09/10/23 16:43 Baso # (Auto) 0.1 10^3/uL (0.0- 0.1) 09/10/23 16:43 Nucleated RBC % (a uto) 0 % 09/10/23 16:43 Nucleated RBCs # 0.0 /100WBC 09/10/23 16:43 Sodium 140 mmol/L (136-1 45) 09/10/23 16:43 Potassium 4.7 mmol/L (3.5-5 .1) 09/10/23 16:43 Chloride 102 mmol/L (98-10 7) 09/10/23 16:43 Carbon Dioxide 27 mmol/L (22-29) 09/10/23 16:43 Anion Gap 15.7 (5-19) 09/10/23 16:43 BUN 15 mg/dL (6-20) 09/10/23 16:43 Creatinine 0.9 mg/dL (0.7-1. 2) 09/10/23 16:43 GFR Calculation 99.8 mL/min (90-1 30) 09/10/23 16:43 Glucose 115 mg/dL (65-115 ) 09/10/23 16:43 Calculated Osmolal ity 292 mOsm/kg (285- 295) 09/10/23 16:43 Calcium 9.7 mg/dL (8.5-10 .5) 09/10/23 16:43 Total Bilirubin 0.4 mg/dL (0.15-1 .2) 09/10/23 16:43 AST 20 U/L (0-40) 09/10/23 16:43 ALT 23 U/L (0-41) 09/10/23 16:43 Alkaline Phosphata se 95 U/L (40-130) 09/10/23 16:43 Total Protein 7.5 g/dL (6.6-8.7 ) 09/10/23 16:43 Albumin 4.8 g/dL (3.5-5.2 ) 09/10/23 16:43 Globulin 2.7 g/dL (1.3-4.6 ) 09/10/23 16:43 Salicylates < 0.3 mg/dL (3-10 ) L 09/10/23 16:43 Urine Opiates Scre en Negative ng/mL (N egative) 09/10/23 19:13 Acetaminophen < 5.0 ug/mL (10-3 0) L 09/10/23 16:43 Ur Barbiturates Sc reen Negative ng/mL (N egative) 09/10/23 19:13 Ur Phencyclidine S crn Negative ng/mL (N egative) 09/10/23 19:13 Ur Amphetamines Sc reen Negative ng/mL (N egative) 09/10/23 19:13 U Benzodiazepines Scrn Negative ng/mL (N egative) 09/10/23 19:13 Urine Cocaine Scre en Negative ng/mL (N egative) 09/10/23 19:13 U Marijuana (THC) Screen Positive ng/mL (N egative) H 09/10/23 19:13 Ethyl Alcohol < 10 mg/dL (0-10) 09/10/23 16:43 Vitals: Last Vital Signs Temp 98.1 F 09/13/23 19:35 Pulse 75 09/14/23 06:00 Resp 16 09/14/23 06:00 BP 95/63 09/14/23 06:00 Pulse Ox 98 09/14/23 06:00 O2 Del Method Room Air 09/14/23 06:00 Discharge Plan Discharge Patient Disposition: Home Condition: Stable Prescriptions: New lurasidone 40 mg tablet 40 mg PO 1900 30 Days Qty: 30 1RF Discharge Orders: Discharge Order (Routine); Ordered 09/14/23 Ordered By: Dave Dobbins Referrals: [facility] [Outside] - 09/17/23 8:15 am (Initial assessment for services) Discharge Diet: Regular Discharge Activity: Resume usual activity Patient Instructions: Lurasidone (By mouth) (Latuda), ADHD in Adults (DC), Bipolar Disorder (DC), Help Prevent Suicide (DC), Suicide Prevention (DC), Opioid Safety Discharge Attestations NPU Time Spent in Discharge Care*: less than 30 min Specific Discharge Activities: Specific discharge activities: educating patient, discussing with lining caser/social workers/dc planners, documenting/other paperwork and evaluating patient/reviewing data Coding Level of Care Code Acute Code for [facility] Fwd Diagnoses Suicidal ideation R45.851 Bipolar depression F31.9 Bipolar II disorder F31.81 ADHD, predominantly inattentive type F90.0
[2023-09-14 12:49] VITALS: BP 95/63; PULSE 75; RESP 16; O2SAT 98
== END 2023-09-14 13:30 | disposition home or self-care (01) | DRG 885 ==
LOC: ER 17:48 → NP 18:23
PROVIDERS: Admitting Provider Psychiatry & Neurology Psychiatry; Emergency Provider Emergency Medicine; Visit Provider Psychiatry & Neurology Psychiatry
DX: F31.81 Bipolar II disorder (principal); R45.851 Suicidal ideations; F17.210 Nicotine dependence, cigarettes, uncomplicated; F90.0 Attention-deficit hyperactivity disorder, predominantly inattentive type; Z81.8 Family history of other mental and behavioral disorders; F12.90 Cannabis use, unspecified, uncomplicated; Z63.0 Problems in relationship with spouse or partner
CPT/HCPCS: 36415; 80053; 80306; 80307; 85025; 97150; 97165; 99285

== ENCOUNTER → 2023-10-21 13:04 | Outpatient (BNVA) | payer OTHER, SELFPAY | PROVIDERS: Visit Provider Nurse Practitioner | DX: Z79.899 Other long term (current) drug therapy (principal) | CPT/HCPCS: 80061; 83036 ==